=== PATIENT | female | born 1940 | race Caucasian/White ===

== ENCOUNTER → 2016-07-29 | Outpatient (CLI) | payer MEDICARE, BC ==
[~2016-07-29] MED LIST: ALEVE 220MG220 MG PO; ASPIRIN E.C. 8181 MG PO; CALTRATE-600 W600 MG PO; CENTRUM SILVER1 CTB PO; COZAAR 50MG50 MG/TAB PO; CRANBERRY500 M3 PO; ESTRACE0.1 MG/GM VG; LIPITOR 10MG10 MG PO; MASON NATURAL1200 MG PO; NORCO 325 MG-51 TAB PO; PEPCID 20MG TAB20 MG PO; PROBIOTIC ACID1 EAC3 PO; VITAMIN D31000 I1 PO; ZYRTEC 10MG10 MG PO
== END ==
LOC: MC.RAD 10:50
DX: Z12.31 Encounter for screening mammogram for malignant neoplasm of breast (principal); R92.1 Mammographic calcification found on diagnostic imaging of breast

== ENCOUNTER → 2016-12-12 | Outpatient (CLI) | payer MEDICARE, BC | LOC: COL.RAD 09:29 | DX: N30.21 Other chronic cystitis with hematuria (principal); Z96.0 Presence of urogenital implants ==

== ENCOUNTER 2017-01-27 09:56 | Day surgery (SDC) | payer MEDICARE, BC ==
[~2017-01-27] VITALS: Ht 170.2 cm; Wt 93.1 kg
[2017-01-27] MEDS ORDERED: COZAAR 50MG50 MG/TAB PO (10:14)
[2017-01-27] MEDS ORDERED: ESTRACE0.1 MG/GM VG (10:15)
[2017-01-27] MEDS ORDERED: LIPITOR 10MG10 MG PO (10:15)
[2017-01-27] MEDS ORDERED: PROBIOTIC ACID1 EAC3 PO (10:16)
[2017-01-27] MEDS ORDERED: ZYRTEC 10MG10 MG PO (10:16)
[2017-01-27] MEDS ORDERED: MASON NATURAL1200 MG PO (10:17)
[2017-01-27] MEDS ORDERED: VITAMIN D31000 I1 PO (10:18)
[2017-01-27] MEDS ORDERED: CENTRUM SILVER1 CTB PO (10:18)
[2017-01-27] MEDS ORDERED: ALEVE 220MG220 MG PO (10:19)
[2017-01-27] MEDS ORDERED: CALTRATE-600 W600 MG PO (10:19)
[2017-01-27] MEDS ORDERED: ASPIRIN E.C. 8181 MG PO (10:20)
[2017-01-27] MEDS ORDERED: CRANBERRY500 M3 PO (10:20)
[2017-01-27] MEDS ORDERED: PEPCID 20MG TAB20 MG PO (10:21)
[2017-01-27 10:59] VITALS: BP 173/76; PULSE 70; TEMP 97.7
[2017-01-27] MEDS ORDERED: NORCO 325 MG-51 TAB PO (12:45)
[2017-01-27 13:25] VITALS: BP 115/100; PULSE 66; TEMP 98
[2017-01-27 13:40] VITALS: BP 151/71; PULSE 61
[2017-01-27 13:55] VITALS: BP 139/63; PULSE 56
== END 2017-01-27 14:22 | disposition home or self-care (01) ==
LOC: SDCO 09:56
DX: D17.1 Benign lipomatous neoplasm of skin and subcutaneous tissue of trunk (principal); Z80.9 Family history of malignant neoplasm, unspecified; I10 Essential (primary) hypertension
CPT/HCPCS: J0690; J1100; J1885; J2405; J2704; J3010

== ENCOUNTER 2017-06-11 10:00 | Outpatient (RCR) | payer MEDICARE, BC | END 2017-07-06 09:50 | disposition home or self-care (01) | LOC: MKS.ESL.PT 10:00 | DX: M25.511 Pain in right shoulder (principal) | CPT/HCPCS: G8978-GP; G8979-GP; G8980-GP ==

== ENCOUNTER → 2017-09-21 | Outpatient (CLI) | payer MEDICARE, BC | LOC: MC.RAD 08-13 14:20 | DX: Z12.31 Encounter for screening mammogram for malignant neoplasm of breast (principal) ==

== ENCOUNTER 2018-06-17 14:00 | Outpatient (RCR) | payer MEDICARE, BC | END 2018-08-23 | disposition home or self-care (01) | LOC: MKS.ESL.PT | DX: M54.2 Cervicalgia (principal); M25.512 Pain in left shoulder; M25.511 Pain in right shoulder; R51 Headache | CPT/HCPCS: G8981-GP; G8982-GP; G8983-GP ==

== ENCOUNTER → 2018-10-20 | Outpatient (CLI) | payer MEDICARE, BC | LOC: MC.RAD 08:21 | DX: Z12.31 Encounter for screening mammogram for malignant neoplasm of breast (principal) ==

== ENCOUNTER 2019-01-29 08:16 | Inpatient (IN) | payer MEDICARE, BC ==
[~2019-01-29] VITALS: Ht 167.6 cm; Wt 95.5 kg
[2019-01-29 09:43] LABS: HEMATOCRIT 38.9 % (37.0-47.0); MEAN CELL VOLUME 83 fl (80.0-100.0); MEAN CORPUSCULAR HEMOGLOBIN 28 pg (27.0-31.0); MEAN CORPUSCULAR HGB CONC 33 g/dl (33.0-37.0); MEAN PLATELET VOLUME 9.1 fl (7.4-10.4); PLATELET COUNT 428 K/mm3 (130-400); RED BLOOD COUNT 4.67 M/mm3 (4.10-5.30)
[2019-01-29 10:01] LABS: ALANINE AMINOTRANSFERASE 73 U/L (9-52); ALBUMIN 3.5 gm/dL (3.5-5.0); ALKALINE PHOSPHATASE 122 U/L (50-136); ANION GAP 10 mmol/L (7-16); AST,SGOT 43 U/L (15-37); BILIRUBIN,TOTAL 0.6 mg/dL (0.0-1.0); BLOOD UREA NITROGEN 33 mg/dL (7-17); CALCIUM 9.1 mg/dL (8.4-10.2); CARBON DIOXIDE 26 mmol/L (22-30); CHLORIDE 101 mmol/L (98-107); CREATININE, serum 1.23 (0.52-1.25); GLUCOSE 110 mg/dL (74-106); POTASSIUM 3.8 mmol/L (3.4-5.0); SODIUM 137 mmol/L (137-145); TOTAL PROTEIN 7.3 gm/dL (6.4-8.2)
[2019-01-29 10:10] LABS: TROPONIN-I < 0.012 ng/mL (0.000-0.035)
[2019-01-29 10:14] LABS: C-REACTIVE PROTEIN 14.3 mg/dL (0.0-0.9)
[2019-01-29 10:40] LABS: ERYTHROCYTE SEDIMENTATION RATE 129 mm/hr (0-30)
[2019-01-29 11:49] VITALS: BP 111/41; PULSE 89; TEMP 98.7
[2019-01-29 11:52] LABS: BAND 4 % (0-10); LYMPHOCYTE 3 % (20.0-51.0); NEUTROPHILS 93 % (42.0-75.2); PLATELET ESTIMATE INCREASED (NORMAL)
[2019-01-29] MEDS ORDERED: PREDNISONE10 MG PO (12:21)
[2019-01-29 16:00] VITALS: BP 107/43; PULSE 90; TEMP 98.6
--- NOTE | 2019-01-29 18:37 | NUR ---
Patient has done well throughout the day, Alert and oriented x 3. States generalized pain through the day, given scheduled pain medications. Has been up to restroom,x 2 assist throughout the day. Fluids and antibiotic via pump to left forarm per orders. Denies further needs at this time.
[2019-01-29 19:47] VITALS: BP 115/53; PULSE 83; TEMP 98
[2019-01-30] VITALS (417 sets, daily range): BP systolic 86–129; BP diastolic 44–66; PULSE 67–93; TEMP 97.9–98.7; O2SAT 84–99
--- NOTE | 2019-01-30 06:23 | NUR ---
PT IN BED. NO N/V. PT HAVING A FEW LOOSE STOOLS. SCHED. TORADOL FOR PAIN.
[2019-01-30 07:44] LABS: MEAN CELL VOLUME 85 fl (80.0-100.0); MEAN CORPUSCULAR HGB CONC 33 g/dl (33.0-37.0); MEAN PLATELET VOLUME 9.3 fl (7.4-10.4); RED BLOOD COUNT 3.88 M/mm3 (4.10-5.30); REDCELL DISTRIBUTION WIDTH-CV 13.2 % (11.5-14.5)
[2019-01-30 07:48] LABS: HEMATOCRIT 32.9 % (37.0-47.0); MEAN CORPUSCULAR HEMOGLOBIN 28 pg (27.0-31.0); PLATELET COUNT 328 K/mm3 (130-400)
[2019-01-30 08:04] LABS: ALBUMIN 2.6 gm/dL (3.5-5.0); BILIRUBIN,TOTAL 1.8 mg/dL (0.0-1.0); CALCIUM 7.9 mg/dL (8.4-10.2); CREATININE, serum 1.34 (0.52-1.25); MAGNESIUM 2.2 mg/dL (1.6-2.3); POTASSIUM 3.9 mmol/L (3.4-5.0); TOTAL PROTEIN 5.7 gm/dL (6.4-8.2); URIC ACID 5.1 mg/dL (2.5-6.2)
[2019-01-30 08:14] LABS: C-REACTIVE PROTEIN 24.1 mg/dL (0.0-0.9)
--- NOTE | 2019-01-30 08:48 | NUR ---
REPORT RECEIVED FROM TOO YOUNG ON SURGICAL UNIT.
--- NOTE | 2019-01-30 08:55 | NUR ---
PT TRANSFERRED FROM SURGICAL UNIT TO ICU 2. PT BROUGHT VIA BED. PT AWAKE, ALERT, AND ORIENTED. PT ON ROOM AIR.
--- NOTE | 2019-01-30 09:00 | NUR ---
DR ROSARIO PRESENT TO ASSESS PATIENT.
--- NOTE | 2019-01-30 09:15 | NUR ---
22G PERIPHERAL IV INSERTED TO RIGHT FOREARM.
[2019-01-30 09:17] LABS: BAND 21 % (0-10); LYMPHOCYTE 2 % (20.0-51.0); NEUTROPHILS 77 % (42.0-75.2); PLATELET ESTIMATE NORMAL (NORMAL)
[2019-01-30 09:18] LABS: ERYTHROCYTE SEDIMENTATION RATE > 140 mm/hr (0-30)
--- NOTE | 2019-01-30 12:16 | NUR ---
Patient lives at home in [place], [place] and plans to return home upon recovery if possible and also receives support from her daughter (Tamara Dejesus [phone]) as needed who also lives in [place]. Patient's primary care physician is Dr. Gem Huddleston, her pharmacy is [facility], and she does not have advance directives of healthcare completed at this time. Patient has no anticipated durable medical equipment at this time but may be re-evaluated depending on her pneumonia recovery. nursing surgical services director will follow as needed.
--- NOTE | 2019-01-30 13:34 | NUR ---
PT'S O2 SAT DECREASED TO 90% WHILE SLEEPING. PT PLACED ON 2L NC. O2 SAT NOW 96%
--- NOTE | 2019-01-30 18:50 | NUR ---
Report recieved from HANNAH English. Patient is assisted to bathroom at this time per request. MIVF running at ordered rate to uncomplicated LAC peripheral line. Care assumed.
--- NOTE | 2019-01-30 21:20 | NUR ---
Patient with pain to LAC peripheral line. Upon assessment some leakage is noted while flushing line. Line is removed.
[2019-01-31] VITALS (248 sets, daily range): BP systolic 111–134; BP diastolic 58–69; PULSE 65–81; TEMP 97.8–98.4; O2SAT 86–100
[2019-01-31 07:32] LABS: HEMOGLOBIN 10.2 g/dl (12.5-16.0); MEAN CELL VOLUME 86 fl (80.0-100.0); MEAN CORPUSCULAR HEMOGLOBIN 28 pg (27.0-31.0); MEAN CORPUSCULAR HGB CONC 33 g/dl (33.0-37.0); MEAN PLATELET VOLUME 9.4 fl (7.4-10.4); PLATELET COUNT 259 K/mm3 (130-400); RED BLOOD COUNT 3.65 M/mm3 (4.10-5.30); REDCELL DISTRIBUTION WIDTH-CV 13.2 % (11.5-14.5)
[2019-01-31 07:38] LABS: ALBUMIN 2.6 gm/dL (3.5-5.0); BILIRUBIN,TOTAL 0.5 mg/dL (0.0-1.0); CALCIUM 8.1 mg/dL (8.4-10.2); CREATININE, serum 1.26 (0.52-1.25); POTASSIUM 4.4 mmol/L (3.4-5.0); TOTAL PROTEIN 5.6 gm/dL (6.4-8.2)
[2019-01-31 07:41] LABS: HEMATOCRIT 31.3 % (37.0-47.0)
--- NOTE | 2019-01-31 08:00 | NUR ---
Pt A&O x4. Pt denies pain at present time. Pt ready to order breakfast.
[2019-01-31 08:20] LABS: LYMPHOCYTE 3 % (20.0-51.0); NEUTROPHILS 97 % (42.0-75.2); PLATELET ESTIMATE NORMAL (NORMAL)
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
--- NOTE | 2019-01-31 14:55 | NUR ---
REPORT GIVEN TO HANNAH GUEVARA. PT GOING TO [facility] 358 ON MEDICAL FLOOR. 1508: PT TRANSPORTED TO [facility] 358 VIA AND PERSONAL BELONGINGS WITH.
--- NOTE | 2019-01-31 19:09 | NUR ---
Patient arrived to room from ICU via wheelchair. Immediately worked with PT who assisted her to bed. Patient providied with fresh water. Requested extra pillow. No other needs verbalized. Call light and personal items are within reach.
[2019-02-01 03:24] VITALS: BP 161/88; PULSE 90; TEMP 98
--- NOTE | 2019-02-01 05:52 | NUR ---
Telemetry called and reported pt having a 6 sec strip of A-fib/flutter and another one about 11sec and a third of about 5sec. Pt was up on the BSC having a BM. She states she was not bearing down and she denies feeling any different. Finished on BSC and then sat at edge of bed. IV site infiltrated, IV dc'd and cath intact. Restarted #20g in L wrist on first attempt. Flushes well. Call light within reach.
[2019-02-01 07:37] LABS: MEAN CELL VOLUME 84 fl (80.0-100.0); MEAN CORPUSCULAR HEMOGLOBIN 28 pg (27.0-31.0); MEAN CORPUSCULAR HGB CONC 33 g/dl (33.0-37.0); MEAN PLATELET VOLUME 9.7 fl (7.4-10.4); PLATELET COUNT 335 K/mm3 (130-400); RED BLOOD COUNT 3.94 M/mm3 (4.10-5.30); REDCELL DISTRIBUTION WIDTH-CV 13.1 % (11.5-14.5)
[2019-02-01 07:41] LABS: ALBUMIN 2.9 gm/dL (3.5-5.0); BILIRUBIN,TOTAL 0.5 mg/dL (0.0-1.0); CALCIUM 8.5 mg/dL (8.4-10.2); CREATININE, serum 1.16 (0.52-1.25); HEMATOCRIT 33.1 % (37.0-47.0); POTASSIUM 4.3 mmol/L (3.4-5.0); TOTAL PROTEIN 6.2 gm/dL (6.4-8.2)
[2019-02-01 08:03] LABS: C-REACTIVE PROTEIN 13.3 mg/dL (0.0-0.9)
[2019-02-01 08:34] LABS: LYMPHOCYTE 1 % (20.0-51.0); NEUTROPHILS 99 % (42.0-75.2); PLATELET ESTIMATE NORMAL (NORMAL)
[2019-02-01 09:01] VITALS: BP 145/80; PULSE 76; TEMP 98.2
[2019-02-01 09:04] LABS: ERYTHROCYTE SEDIMENTATION RATE > 140 mm/hr (0-30)
--- NOTE | 2019-02-01 10:36 | NUR ---
Follow-up visit; Patient thanked Fountain Brush Assembler for looking in on her again today. Nena says she is better today and prays that she continues to make progress. Fountain Brush Assembler offered encouragement and God's blessings.
[2019-02-01 13:16] VITALS: BP 155/71; PULSE 79; TEMP 97.9
[2019-02-01 18:11] VITALS: BP 142/86; PULSE 78
[2019-02-01 19:03] VITALS: BP 157/76; PULSE 85; TEMP 98.1
--- NOTE | 2019-02-01 19:55 | NUR ---
Report given to oncoming shift, call light and personal items are within reach.
--- NOTE | 2019-02-01 20:45 | NUR ---
Pt up in room using BSC. Denies any needs at this time. NA assist pt with getting off commode. Occassional dry cough.
[2019-02-02 00:03] VITALS: BP 157/82; PULSE 75; TEMP 98.3
--- NOTE | 2019-02-02 02:15 | NUR ---
Pt given scheduled Solu Medrol. Refused her scheduled Tylenol at 2200 but took it now. Warm blanket given. O2 on at 2L/NC when in bed resting. Call light in reach.
[2019-02-02 03:59] VITALS: BP 149/76; PULSE 78; TEMP 97.9
[2019-02-02 07:08] LABS: ALBUMIN 2.7 gm/dL (3.5-5.0); BILIRUBIN,TOTAL 0.4 mg/dL (0.0-1.0); CALCIUM 8.3 mg/dL (8.4-10.2); CREATININE, serum 1.1 (0.52-1.25); POTASSIUM 4.1 mmol/L (3.4-5.0); TOTAL PROTEIN 5.7 gm/dL (6.4-8.2)
[2019-02-02 07:13] LABS: HEMOGLOBIN 10.5 g/dl (12.5-16.0); MEAN CELL VOLUME 85 fl (80.0-100.0); MEAN CORPUSCULAR HEMOGLOBIN 28 pg (27.0-31.0); MEAN CORPUSCULAR HGB CONC 33 g/dl (33.0-37.0); MEAN PLATELET VOLUME 9.9 fl (7.4-10.4); PLATELET COUNT 292 K/mm3 (130-400); RED BLOOD COUNT 3.76 M/mm3 (4.10-5.30); REDCELL DISTRIBUTION WIDTH-CV 13.1 % (11.5-14.5)
[2019-02-02 07:51] LABS: ERYTHROCYTE SEDIMENTATION RATE 120 mm/hr (0-30)
--- NOTE | 2019-02-02 07:56 | NUR ---
Report given to HANNAH Monsivais
[2019-02-02 08:04] LABS: LYMPHOCYTE 2 % (20.0-51.0); NEUTROPHILS 96 % (42.0-75.2)
[2019-02-02 08:05] LABS: HYPOCHROMIA 1+; PLATELET ESTIMATE NORMAL (NORMAL)
--- NOTE | 2019-02-02 08:09 | NUR ---
Report received from HANNAH Estrada.
[2019-02-02 08:21] VITALS: BP 143/78; PULSE 73; TEMP 98
--- NOTE | 2019-02-02 09:25 | NUR ---
Pt awake and alert upon entry, no C/O pain at this time, shift assessments complete, left Pt call light in reach, bed in lowest position.
--- NOTE | 2019-02-02 11:29 | NUR ---
SW attended clinical rounds. The hospitalist discussed the possibility of the patient having to transfer to a center with rheumatology. SW then followed up with the patient. The patient reports that if she does not have to transfer, she plans to stay at her daughter, Miko, apartment upon discharge. The patient had no other questions or concerns. SW to continue to follow.
[2019-02-02 11:47] VITALS: BP 153/74; PULSE 75; TEMP 97.9
[2019-02-02 17:10] VITALS: BP 142/68; PULSE 81; TEMP 98
--- NOTE | 2019-02-02 19:43 | NUR ---
Pt sitting up in bed. RT in to check sats which are 93% on room air. IV antibiotic completed. Occasional dry cough. Denies any pain. Visits with family on phone. Call light in reach.
[2019-02-02 20:00] VITALS: BP 161/76; PULSE 77; TEMP 98.2
--- NOTE | 2019-02-02 20:26 | NUR ---
Pt up to BR and then when she returned to bed she had a very small amt of blood at IV insertion site. Will monitor as site was just flushed and had worked well. Call light within reach
[2019-02-03] VITALS: BP 148/64; PULSE 68; TEMP 98.1
[2019-02-03 02:34] VITALS: BP 148/64; PULSE 69; TEMP 98.1
--- NOTE | 2019-02-03 03:00 | NUR ---
IV site infiltrated in L wrist. Restarted on 3rd attempt with #30 in L AC. Flushes well. DC'd IV in L wrist with cath intact. Will continue to monitor.
--- NOTE | 2019-02-03 07:20 | NUR ---
Received report from HANNAH Estrada.
--- NOTE | 2019-02-03 07:56 | NUR ---
Report given to HANNAH Monsivais.
[2019-02-03 08:20] VITALS: BP 139/74; PULSE 66; TEMP 97.9
--- NOTE | 2019-02-03 09:39 | NUR ---
Pt awake and alert upon entry, sitting up in bed, no C/O pain at this time just some stiffness in her knees, shift assessments complete, left Pt call light in reach, bed in lowest position.
--- NOTE | 2019-02-03 10:33 | NUR ---
Follow-up visit; Patient thanked Settlement Worker for looking in on her and offering empathy and God's blessings.
[2019-02-03 12:03] VITALS: BP 147/61; PULSE 63; TEMP 98.6
[2019-02-03 12:18] LABS: CALCIUM 8.7 mg/dL (8.4-10.2); CREATININE, serum 1.12 (0.52-1.25); POTASSIUM 4.1 mmol/L (3.4-5.0)
[2019-02-03 12:26] LABS: HEMATOCRIT 37.2 % (37.0-47.0); HEMOGLOBIN 12.3 g/dl (12.5-16.0); MEAN CELL VOLUME 84 fl (80.0-100.0); MEAN CORPUSCULAR HEMOGLOBIN 28 pg (27.0-31.0); MEAN CORPUSCULAR HGB CONC 33 g/dl (33.0-37.0); MEAN PLATELET VOLUME 9.8 fl (7.4-10.4); PLATELET COUNT 351 K/mm3 (130-400); RED BLOOD COUNT 4.44 M/mm3 (4.10-5.30); REDCELL DISTRIBUTION WIDTH-CV 12.9 % (11.5-14.5)
[2019-02-03 12:50] LABS: LYMPHOCYTE 8 % (20.0-51.0); MYELOCYTE 1 % (0-0); NEUTROPHILS 88 % (42.0-75.2); PLATELET ESTIMATE NORMAL (NORMAL)
[2019-02-03 15:49] VITALS: BP 171/71; PULSE 79; TEMP 97.9
--- NOTE | 2019-02-03 18:37 | NUR ---
Pt rested in room today, no C/O pain during the shift, Pt has been refusing Tylenol today, VS have remained stable.
--- NOTE | 2019-02-03 19:45 | NUR ---
Patient assessed at this time. Alert and oriented x 4, and able to make needs known. Denies having pain and discomfort. Declined wanting scheduled APAP. Peripheral IV to left AC flushed. Site is without redness, warmth, swelling, and pain. Reports SOB and dyspnea with exertion only. On room air at this time. States that she wears oxygen at night only. LS CTA. Respirations even and unlabored. HRR. Telemetry in place. Capillary refill less than 3 seconds. Non-tenting skin turgor. BSAx4. Abdomen soft and non-tender. 2+ edema LUE. 3+ edema BLE. Denies having any questions, needs, or concerns at this time. Encouraged to elevate BLE and LUE. Voiced understanding. In recliner watching TV at this time. Call light is within reach.
[2019-02-03 20:34] VITALS: BP 146/63; PULSE 72; TEMP 98.4
[2019-02-04 00:40] VITALS: BP 144/57; PULSE 65; TEMP 97.4
[2019-02-04 04:27] VITALS: BP 157/69; PULSE 68; TEMP 94
--- NOTE | 2019-02-04 05:05 | NUR ---
Patient has denied having pain this shift. Has not wanted scheduled APAP. Voices no questions, needs, or concerns. Resting in bed with call light within reach at this time.
[2019-02-04 06:38] LABS: HEMOGLOBIN 10.9 g/dl (12.5-16.0); MEAN CELL VOLUME 83 fl (80.0-100.0); MEAN CORPUSCULAR HEMOGLOBIN 28 pg (27.0-31.0); MEAN CORPUSCULAR HGB CONC 34 g/dl (33.0-37.0); PLATELET COUNT 285 K/mm3 (130-400); RED BLOOD COUNT 3.92 M/mm3 (4.10-5.30); REDCELL DISTRIBUTION WIDTH-CV 12.9 % (11.5-14.5)
[2019-02-04 06:44] LABS: HEMATOCRIT 32.5 % (37.0-47.0)
[2019-02-04 07:02] LABS: C-REACTIVE PROTEIN 2.8 mg/dL (0.0-0.9); CALCIUM 8.2 mg/dL (8.4-10.2); CREATININE, serum 0.97 (0.52-1.25); POTASSIUM 4.2 mmol/L (3.4-5.0)
[2019-02-04 07:06] LABS: BASOPHIL 1 % (0-2); ERYTHROCYTE SEDIMENTATION RATE 88 mm/hr (0-30); LYMPHOCYTE 4 % (20.0-51.0); NEUTROPHILS 91 % (42.0-75.2); PLATELET ESTIMATE NORMAL (NORMAL)
[2019-02-04 07:27] VITALS: BP 139/74; PULSE 70; TEMP 97.7
--- NOTE | 2019-02-04 09:30 | NUR ---
Pt resting in bed, awake and alert upon entry, no C/O pain at this time, shift assessments complete, left Pt call light in reach, bed in lowest position.
--- NOTE | 2019-02-04 10:04 | NUR ---
The patient is to discharge back home with her daughter, 02/04. SW presented and explained the IM form to the patient. The patient verbalized understanding, signed, and she was provided a copy. No additional needs at this time.
[2019-02-04] MEDS ORDERED: MONODOX100 PO (10:10)
[2019-02-04] MEDS ORDERED: PREDNISONE20 MG PO (10:14)
[2019-02-04 12:09] VITALS: BP 158/72; PULSE 66; TEMP 98.1
--- NOTE | 2019-02-04 16:19 | NUR ---
Pt discharged to home, escorted to entrance, left facility with family via private auto.
== END 2019-02-04 16:21 | disposition home or self-care (01) | DRG 545 ==
LOC: COL.ER 08:16 → SURG 11:01 → ICU 11:01 → MEDICAL 01-31 15:06
PROVIDERS: Family Medicine; Internal Medicine Pulmonary Disease; Physician Assistant; ADMIT Family Medicine
DX: M06.1 Adult-onset Still's disease (principal); J18.9 Pneumonia, unspecified organism; N17.9 Acute kidney failure, unspecified; E86.0 Dehydration; M79.7 Fibromyalgia; Z88.1 Allergy status to other antibiotic agents; Z88.0 Allergy status to penicillin; I95.9 Hypotension, unspecified; D64.9 Anemia, unspecified; R19.7 Diarrhea, unspecified; D47.3 Essential (hemorrhagic) thrombocythemia; N18.3 Chronic kidney disease, stage 3 (moderate)
CPT/HCPCS: 99222-AI; 99231-AI; 99232-AI; 99233-AI; 99239; C9113; J0456; J1644; J1885; J2270; J2405; J2930; J7030; J7050; J7120

== ENCOUNTER → 2019-04-13 | Outpatient (CLI) | payer MEDICARE, BC ==
[~2019-04-13] MED LIST changes: +MONODOX100 PO; +PREDNISONE10 MG PO; +PREDNISONE20 MG PO
== END ==
LOC: COL.VAS 14:52
DX: I27.20 Pulmonary hypertension, unspecified (principal); I35.0 Nonrheumatic aortic (valve) stenosis; I34.0 Nonrheumatic mitral (valve) insufficiency

== ENCOUNTER 2019-06-30 06:38 | Day surgery (SDC) | payer MEDICARE, BC ==
[2019-06-30] VITALS (15 sets, daily range): BP systolic 107–170; BP diastolic 59–91; PULSE 66–83; TEMP 98.5
[~2019-06-30] VITALS: Ht 167.6 cm; Wt 93.1 kg
[~2019-06-30 06:38] MED LIST changes: +CRANBERRY FRUI425 MG PO; -CRANBERRY500 M3 PO; +MASON NATURAL2000 IU PO; -VITAMIN D31000 I1 PO
[2019-06-30] MEDS ORDERED: ZYRTEC 10MG10 MG PO (08:10)
[2019-06-30] MEDS ORDERED: BIOTIN5000 MCG PO (08:10)
[2019-06-30] MEDS ORDERED: PREDNISONE1 MG PO (08:11)
[2019-06-30] MEDS ORDERED: PREDNISONE 5MG5 MG PO (08:12)
[2019-06-30 08:19] LABS: CALCIUM 9.4 mg/dL (8.4-10.2); CREATININE, serum 1.05 (0.52-1.25); POTASSIUM 3.7 mmol/L (3.4-5.0)
[2019-06-30 08:28] LABS: HEMATOCRIT 40.7 % (37.0-47.0); HEMOGLOBIN 13.3 g/dl (12.5-16.0); MEAN CELL VOLUME 89 fl (80.0-100.0); MEAN CORPUSCULAR HEMOGLOBIN 29 pg (27.0-31.0); MEAN CORPUSCULAR HGB CONC 33 g/dl (33.0-37.0); MEAN PLATELET VOLUME 9.6 fl (7.4-10.4); PLATELET COUNT 261 K/mm3 (130-400); RED BLOOD COUNT 4.59 M/mm3 (4.10-5.30); REDCELL DISTRIBUTION WIDTH-CV 12.6 % (11.5-14.5)
[2019-06-30 08:39] LABS: PROTHROMBIN TIME 11.2 SECONDS (9.7-12.8)
[2019-06-30 08:42] LABS: PARTIAL THROMBOPLASTIN TIME 32.3 SECONDS (26.0-37.0)
--- NOTE | 2019-06-30 09:03 | NUR ---
pt to procedure.
--- NOTE | 2019-06-30 09:25 | NUR ---
Initial visit; Patient thanked Special Education Curriculum Specialist for looking in on her and offering spiritual care especially prayer prior to her surgical procedure.
--- NOTE | 2019-06-30 09:25 | NUR ---
SEE MERGE DOCUMENTATION FOR MEDICATION ADMINISTRATION TIMES AND INTRA/POST PROCEDURE SEDATION ASSESSMENTS
[2019-06-30] MEDS ORDERED: NORVASC 5MG5 MG/TAB PO (10:16)
--- NOTE | 2019-06-30 15:00 | NUR ---
Discharge instructions given to pt.pt verbalizes understanding.INT removed,catheter tip intact.Pt escorted out via wheelchair by this nurse.
== END 2019-06-30 15:41 | disposition home or self-care (01) ==
LOC: COL.CAR 06:38
PROVIDERS: Internal Medicine Cardiovascular Disease
DX: R06.02 Shortness of breath (principal); I27.20 Pulmonary hypertension, unspecified; I10 Essential (primary) hypertension; F40.240 Claustrophobia; E78.00 Pure hypercholesterolemia, unspecified; E66.9 Obesity, unspecified; M35.3 Polymyalgia rheumatica; J30.2 Other seasonal allergic rhinitis; M06.1 Adult-onset Still's disease; I08.3 Combined rheumatic disorders of mitral, aortic and tricuspid valves; Z79.52 Long term (current) use of systemic steroids; Z88.1 Allergy status to other antibiotic agents; Z88.0 Allergy status to penicillin; Z79.82 Long term (current) use of aspirin; Z80.9 Family history of malignant neoplasm, unspecified; Z82.49 Family history of ischemic heart disease and other diseases of the circulatory system; Z82.61 Family history of arthritis; Z82.3 Family history of stroke; Z88.8 Allergy status to other drugs, medicaments and biological substances
CPT/HCPCS: J1644; J2250; J3010

== ENCOUNTER → 2019-12-23 | Outpatient (CLI) | payer MEDICARE, BC ==
[~2019-12-23] MED LIST changes: +BIOTIN5000 MCG PO; +DOXYCYCLINE 10100 MG PO; +NORVASC 5MG5 MG/TAB PO; +PREDNISONE 5MG5 MG PO; +PREDNISONE1 MG PO
== END ==
LOC: ZCOL.LAB 12:00
DX: R50.9 Fever, unspecified (principal); R51 Headache; Z20.828 Contact with and (suspected) exposure to other viral communicable diseases

== ENCOUNTER 2019-12-29 14:05 | Emergency (ER) | payer MEDICARE, BC ==
[~2019-12-29] VITALS: Ht 165.1 cm; Wt 93.2 kg
[~2019-12-29 14:05] MED LIST changes: -DOXYCYCLINE 10100 MG PO
[2019-12-29 16:25] LABS: COLLECTION METHOD CLEAN CATCH
[2019-12-29 16:31] LABS: PH 7 (5-8); SQUAMOUS EPITHELIAL None Seen /hpf; URINE APPEARANCE Clear; URINE BACTERIA Rare /hpf; URINE BILIRUBIN Negative (NEGATIVE); URINE BLOOD 1+ (NEGATIVE); URINE COLOR Yellow; URINE GLUCOSE Negative (NEGATIVE); URINE KETONE Negative (NEGATIVE); URINE LEUKOCYTE ESTERASE Trace (NEGATIVE); URINE NITRATE Negative (NEGATIVE); URINE PROTEIN(semi-quant) Negative (NEGATIVE); URINE RBC 0-2 /hpf; URINE UROBILINOGEN Negative (NEGATIVE)
[2019-12-29 17:12] LABS: BASO % 0.7 % (0.0-2.0); EOS # 0.2 (0.0-0.7); EOS % 3.9 % (0-4.0); GRAN # 3.4 (1.4-6.5); GRAN % 77.6 % (42.2-75.2); HEMATOCRIT 37.3 % (37.0-47.0); HEMOGLOBIN 12.4 g/dl (12.5-16.0); LYMPH # 0.5 (1.2-3.4); LYMPH % 10.4 % (20.0-51.0); MEAN CELL VOLUME 84 fl (80.0-100.0); MEAN CORPUSCULAR HEMOGLOBIN 28 pg (27.0-31.0); MEAN CORPUSCULAR HGB CONC 33 g/dl (33.0-37.0); MEAN PLATELET VOLUME 10.1 fl (7.4-10.4); MONO # 0.3 (0.1-0.6); MONO % 7.2 % (1.7-9.3); PLATELET COUNT 172 K/mm3 (130-400); RED BLOOD COUNT 4.43 M/mm3 (4.10-5.30); REDCELL DISTRIBUTION WIDTH-CV 12.7 % (11.5-14.5)
[2019-12-29 17:28] LABS: BILIRUBIN,TOTAL 0.9 mg/dL (0.0-1.0); CREATININE, serum 1.08 (0.52-1.25); MAGNESIUM 1.9 mg/dL (1.6-2.3); POTASSIUM 3.4 mmol/L (3.4-5.0); TOTAL PROTEIN 7.3 gm/dL (6.4-8.2)
[2019-12-29 17:35] LABS: ERYTHROCYTE SEDIMENTATION RATE 25 mm/hr (0-30)
[2019-12-29] MEDS ORDERED: DOXYCYCLINE 10100 MG PO (18:51)
[2019-12-29] MEDS ORDERED: PREDNISONE10 MG PO (18:52)
[2019-12-29 19:21] VITALS: BP 144/70; PULSE 80; TEMP 99.1
== END 2019-12-29 19:21 | disposition home or self-care (01) ==
LOC: COL.ER 14:05
PROVIDERS: Emergency Medicine
DX: R50.9 Fever, unspecified (principal); R21 Rash and other nonspecific skin eruption; M06.9 Rheumatoid arthritis, unspecified; Z79.82 Long term (current) use of aspirin; Z79.52 Long term (current) use of systemic steroids

== ENCOUNTER 2020-12-19 08:30 | Outpatient (RCR) | payer MEDICARE, BC ==
[~2020-12-19 08:30] MED LIST changes: +DOXYCYCLINE 10100 MG PO
== END 2020-12-27 08:04 | disposition home or self-care (01) ==
LOC: MKS.ESL.PT 08:30
DX: M47.816 Spondylosis without myelopathy or radiculopathy, lumbar region (principal)

== ENCOUNTER 2021-09-15 16:28 | Inpatient (IN) | payer MEDICARE, BC ==
[~2021-09-15] VITALS: Ht 167.6 cm; Wt 92.2 kg
[2021-09-15 17:28] LABS: BASO % 0.3 % (0.0-2.0); EOS # 0.1 K/mm3 (0.0-0.7); EOS % 0.4 % (0.0-4.0); GRAN # 10.4 K/mm3 (1.4-6.5); GRAN % 86.9 % (42.2-75.2); HEMATOCRIT 43.3 % (37.0-47.0); HEMOGLOBIN 14.6 g/dl (12.5-16.0); LYMPH # 0.8 K/mm3 (1.2-3.4); LYMPH % 6.7 % (20.0-51.0); MEAN CELL VOLUME 85 fl (80.0-100.0); MEAN CORPUSCULAR HEMOGLOBIN 29 pg (27-31); MEAN CORPUSCULAR HGB CONC 34 g/dl (33.0-37.0); MEAN PLATELET VOLUME 10.1 fl (7.4-10.4); MONO # 0.6 K/mm3 (0.1-0.6); MONO % 5.4 % (1.7-9.3); PLATELET COUNT 276 K/mm3 (130-400); RED BLOOD COUNT 5.07 M/mm3 (4.10-5.30); REDCELL DISTRIBUTION WIDTH-CV 13.2 % (11.5-14.5)
[2021-09-15] MEDS ORDERED: MILLIPRED5 MG PO (17:35)
[2021-09-15] MEDS ORDERED: SINGULAIR 110 MG/TAB PO (17:36)
[2021-09-15] MEDS ORDERED: OSCAL 500 TAB500 MG PO (17:38)
[2021-09-15 17:50] LABS: ALBUMIN 3.9 gm/dL (3.4-4.8); BILIRUBIN,TOTAL 1.6 mg/dL (0.2-1.2); C-REACTIVE PROTEIN 0.58 mg/dL (0.00-0.50); CALCIUM 10.3 mg/dL (8.4-10.2); CREATININE, serum 1.12 mg/dL (0.57-1.11); POTASSIUM 4.1 mmol/L (3.5-4.5); TOTAL PROTEIN 7.7 gm/dL (6.2-8.1)
[2021-09-15 22:37] LABS: COLLECTION METHOD CLEAN CATCH
[2021-09-15 22:45] LABS: PH 6 (5-8); SQUAMOUS EPITHELIAL 0-2 /hpf (0-10); URINE APPEARANCE Clear (CLEAR/HAZY); URINE BACTERIA None Seen /hpf (NONE SEEN); URINE BILIRUBIN Negative (NEGATIVE); URINE BLOOD Negative (NEGATIVE); URINE COLOR Yellow (YELLOW); URINE GLUCOSE Negative (NEGATIVE); URINE KETONE Negative (NEGATIVE); URINE LEUKOCYTE ESTERASE Negative (NEGATIVE); URINE NITRATE Negative (NEGATIVE); URINE PROTEIN(semi-quant) Negative (NEGATIVE); URINE RBC 0-2 /hpf (0-2); URINE UROBILINOGEN Negative (NEGATIVE)
[2021-09-15] MEDS ORDERED: PREDNISONE1 MG PO (23:12)
[2021-09-15 23:17] VITALS: BP 156/59; PULSE 81; TEMP 97.8
[2021-09-15 23:57] VITALS: BP 127/58; PULSE 69; TEMP 98.3
[2021-09-16] VITALS (11 sets, daily range): BP systolic 110–143; BP diastolic 52–59; PULSE 62–75; TEMP 97.5–99
--- NOTE | 2021-09-16 01:02 | NUR ---
PATIENT UP TO ROOM 327. ALERT AND ORIENTED. C/O MILD PAIN 2/10 AND DENIES NEED FOR ADDITIONAL PAIN MEDICATION AT THIS TIME. IV LEVAQUIN INFUSING INTO R AC IV, THEN IV FLUIDS WERE HUNG AND IV SOLU CORTEF WAS PUSHED. DISCUSSED WITH PATIENT NEED FOR NPO AT MIDNIGHT. VSS. ADMISSION ASSESSMENTS COMPLETED. REVIEWED MED RX WITH PATIENT. CALL LIGHT IN REACH. CURRENTLY RESTING IN BED.
[2021-09-16 06:42] LABS: HEMATOCRIT 41.6 % (37.0-47.0); HEMOGLOBIN 13.7 g/dl (12.5-16.0); MEAN CELL VOLUME 86 fl (80.0-100.0); MEAN CORPUSCULAR HEMOGLOBIN 28 pg (27-31); MEAN CORPUSCULAR HGB CONC 33 g/dl (33.0-37.0); MEAN PLATELET VOLUME 10.1 fl (7.4-10.4); PLATELET COUNT 258 K/mm3 (130-400); RED BLOOD COUNT 4.85 M/mm3 (4.10-5.30); REDCELL DISTRIBUTION WIDTH-CV 13.2 % (11.5-14.5)
[2021-09-16 07:11] LABS: ALBUMIN 3.3 gm/dL (3.4-4.8); CALCIUM 9.1 mg/dL (8.4-10.2); CREATININE, serum 1.03 mg/dL (0.57-1.11); POTASSIUM 4.2 mmol/L (3.5-4.5); TOTAL PROTEIN 6.7 gm/dL (6.2-8.1)
[2021-09-16 07:31] LABS: BAND 6 % (0-10); LYMPHOCYTE 2 % (20.0-51.0); NEUTROPHILS 89 % (42.0-75.2)
[2021-09-16 07:32] LABS: PLATELET ESTIMATE NORMAL (NORMAL)
--- NOTE | 2021-09-16 08:00 | NUR ---
PATIENT IS A&O. VSS. DENIES PAIN BUT IS C/O NAUSEA, NO EMESIS. GAVE PRN IV ZOFRAN. NPO FOR SURGERY LATER TODAY. AM BS 126, NO SSI GIVEN. CALLED AND TALKED WITH NURSING ABOUT PLAN, PATIENT GIVEN UPDATE AND VERBALLY UNDERSTANDS. CONSENT ON CHART. IV FLUIDS INFUSING VIA PUMP INTO RIGHT AC IV. AM MEDS GIVEN WITH A FEW SIPS. HEAD TO TOE ASSESSMENT COMPLETE. INDEPENDENT IN ROOM. CALL LIGHT IN REACH.
--- NOTE | 2021-09-16 10:00 | NUR ---
CONTAINER COORDINATOR NOTED MILD RASH TO LEGS. NOTIFIED HOSPITALIST WHO WILL COME LOOK AT RASH. NO NEW ORDERS AT THIS TIME. PATIENT DENIES COMPLAINTS.
--- NOTE | 2021-09-16 10:30 | NUR ---
IC GREEN ORDERED TO BE GIVEN PRE-OP BUT NOT AVAILABLE YET BY RX. CALLED PHARMACY AND WAITING FOR DOSE.
--- NOTE | 2021-09-16 11:15 | NUR ---
NURSING CALLED RX FOR IC GREEN ORDERED PRE-OP TO BE GIVEN AT 1030. MED GIVEN LATE. OR NOTIFIED. MEDITECH DOWN, MED FULL DOCUMENTED.
--- NOTE | 2021-09-16 12:10 | NUR ---
PATIENT GOING DOWN TO OR VIA BED. FRIEND AT BEDSIDE. CONSENT ON CHART.
--- NOTE | 2021-09-16 14:23 | NUR ---
fly worker met with patient to discuss discharge plan. Patient currently lives at home alone in [place]. Patient repors to being independent with her ADL's and will use a walker PRN when she feels like she needs it. Patient does not have any home oxygen needs at night but does use a CPAP machine, managed through [facility]. Her PCP is Dr.Preeti Huddleston and she utilizes [facility] for medications with no cost difficulty. Patient is planning on returning home once medically ready. Discharge plan: Home
--- NOTE | 2021-09-16 15:05 | NUR ---
PATIENT NOW BACK IN ROOM FROM SURGERY. A&O. PACU REPORTED SOME CONFUSION FROM ANESTHESIA IN THE EARLY PHASES OF RECOVERY BUT PATIENT SEEMS FINE NOW. VSS. 02 @ 2L PER NC WITH SATS IN MID TO UPPER 90'S. NO C/O PAIN OR NAUSEA. ABD LAP SITES X5 ARE WELL APPROXIMATED WITH GLUED CLOSURE. IV FLUIDS INFUSING INTO RIGHT AC IV. HEAD TO TOE ASSESSMENT COMPLETE. FRIEND AT BEDSIDE IS GOING TO LEAVE SO PATIENT CAN SLEEP. CALL LIGHTS IN REACH. BED ALARM ON. ROOM LIGHTS TURNED DOWN.
--- NOTE | 2021-09-16 16:00 | NUR ---
PATIENT RESTING SOUNDLY WITH NO NEEDS. VSS. CALL LIGHT IN REACH.
--- NOTE | 2021-09-16 23:56 | NUR ---
PATIENT ALERT AND ORIENTED. DENYING PAIN THROUGHOUT SHIFT. DENIES NAUSEA. TOLERATING PO FLUIDS AND FOOD. X5 ABD LAP SITES CDI WITH GLUE AND OPEN TO AIR. R AC IV TO INT. HS MEDICATIONS GIVEN.
[2021-09-17 03:47] VITALS: BP 106/52; PULSE 61; TEMP 98.2
[2021-09-17 06:34] LABS: BASO % 0.2 % (0.0-2.0); EOS % 0.1 % (0.0-4.0); GRAN # 10.4 K/mm3 (1.4-6.5); GRAN % 89.9 % (42.2-75.2); HEMATOCRIT 39.9 % (37.0-47.0); HEMOGLOBIN 13.2 g/dl (12.5-16.0); LYMPH # 0.8 K/mm3 (1.2-3.4); LYMPH % 6.6 % (20.0-51.0); MEAN CELL VOLUME 87 fl (80.0-100.0); MEAN CORPUSCULAR HEMOGLOBIN 29 pg (27-31); MEAN CORPUSCULAR HGB CONC 33 g/dl (33.0-37.0); MEAN PLATELET VOLUME 10.7 fl (7.4-10.4); MONO # 0.3 K/mm3 (0.1-0.6); MONO % 2.5 % (1.7-9.3); RED BLOOD COUNT 4.58 M/mm3 (4.10-5.30); REDCELL DISTRIBUTION WIDTH-CV 13.5 % (11.5-14.5)
[2021-09-17 06:54] LABS: ALBUMIN 3.1 gm/dL (3.4-4.8); BILIRUBIN,TOTAL 0.8 mg/dL (0.2-1.2); CREATININE, serum 1.05 mg/dL (0.57-1.11); TOTAL PROTEIN 6.4 gm/dL (6.2-8.1)
[2021-09-17 07:24] VITALS: BP 122/57; PULSE 66; TEMP 98.2
[2021-09-17 07:30] LABS: PLATELET COUNT 226 K/mm3 (130-400)
--- NOTE | 2021-09-17 08:00 | NUR ---
PATIENT IS A&O. VSS. NO C/O PAIN OR NAUSEA. PASSING GAS. ABD LAP SITES ARE CD&I. PATIENT HOPING TO DISCHARGE HOME TODAY. HEAD TO TOE ASSESSMENT WNL.
[2021-09-17 11:43] VITALS: BP 127/62; PULSE 68; TEMP 98.1
--- NOTE | 2021-09-17 13:26 | NUR ---
First visit from the master printer. prayed with patient. No other needs right now.
[2021-09-17] MEDS ORDERED: LEVAQUIN 750MG750 M1 PO (14:52)
--- NOTE | 2021-09-17 15:40 | NUR ---
PATIENT DISCHARGING HOME VIA WC TO PERSONAL VEHICLE WHERE DAUGHTER IS WAITING. GAVE DISCHARGE INSTRUCTIONS, E-SCRIPT SENT, AND DISCUSSED F/U APTS. ANSWERED QUESTIONS/CONCERNS. DC'D IV SITE AND COVERED SITE WITH GAUZE [employer] COBAN. PATIENT IS PACKED, DRESSED AND DISCHARGED.
== END 2021-09-17 15:40 | disposition home or self-care (01) | DRG 419 ==
LOC: COL.ER 16:28 → SURG 21:50
PROVIDERS: Nurse Practitioner; Nurse Practitioner Family; Physician Assistant; Surgery; ADMIT Student in an Organized Health Care Education/Training Program
PROC: BF13YZZ Fluoroscopy of Gallbladder and Bile Ducts using Other Contrast (ICD-10-PCS; 2021-09-16)
PROC: 8E0W4CZ Robotic Assisted Procedure of Trunk Region, Percutaneous Endoscopic Approach (ICD-10-PCS; 2021-09-16)
PROC: 0FT44ZZ Resection of Gallbladder, Percutaneous Endoscopic Approach (ICD-10-PCS; principal; 2021-09-16 12:30)
DX: K80.00 Calculus of gallbladder with acute cholecystitis without obstruction (principal); N18.30 Chronic kidney disease, stage 3 unspecified; I12.9 Hypertensive chronic kidney disease with stage 1 through stage 4 chronic kidney disease, or unspecified chronic kidney disease; M79.7 Fibromyalgia; M35.3 Polymyalgia rheumatica; M06.1 Adult-onset Still's disease; R73.9 Hyperglycemia, unspecified; E83.52 Hypercalcemia; E78.5 Hyperlipidemia, unspecified; Z79.52 Long term (current) use of systemic steroids; Z79.82 Long term (current) use of aspirin; Z88.0 Allergy status to penicillin; Z88.1 Allergy status to other antibiotic agents
CPT/HCPCS: 99223-AI; 99233-AI; 99239; J0690; J1100; J1170; J1720; J1885; J1956; J2405; J2704; J3010; J7030; J7120; J7512; Q9967

== ENCOUNTER → 2022-12-05 | Outpatient (CLI) | payer MEDICARE, BC ==
[~2022-12-05] MED LIST changes: +LEVAQUIN 750MG750 M1 PO; +MILLIPRED5 MG PO; +OSCAL 500 TAB500 MG PO; +SINGULAIR 110 MG/TAB PO
== END ==
LOC: COL.PUL 11:40
DX: I34.0 Nonrheumatic mitral (valve) insufficiency (principal)